=== PATIENT | female | born 1985 | race Caucasian/White ===

== ENCOUNTER → 2018-03-15 | Emergency (ER) | payer MEDICAID ==
[~2018-03-15] VITALS: Ht 175.3 cm; Wt 79.5 kg
[2018-03-15 18:27] VITALS: BP 124/82; Ht 175.3 cm; Wt 79.5 kg
== END | disposition home or self-care (01) ==
LOC: D.ER 18:19
DX: A64 Unspecified sexually transmitted disease (principal); F17.200 Nicotine dependence, unspecified, uncomplicated

== ENCOUNTER 2018-09-26 12:15 | Emergency (ER) | payer MEDICAID ==
[~2018-09-26] VITALS: Ht 175.3 cm; Wt 77.3 kg
[2018-09-26 12:23] VITALS: Ht 175.3 cm; Wt 77.3 kg
[2018-09-26] MEDS ORDERED: CLEOCIN HCL300 MG PO (14:27)
[2018-09-26 14:33] VITALS: BP 122/64
== END 2018-09-26 14:34 | disposition home or self-care (01) ==
LOC: D.ER 12:15
DX: L70.9 Acne, unspecified (principal)

== ENCOUNTER 2018-10-24 10:02 | Emergency (ER) | payer MEDICAID ==
[~2018-10-24 10:02] MED LIST: CLEOCIN HCL300 MG PO
[2018-10-24 10:15] VITALS: Ht 175.3 cm
[2018-10-24] MEDS ORDERED: LYRICA100 MG PO (10:16)
[2018-10-24] MEDS ORDERED: OXYCONTIN10 MG PO (10:16)
[2018-10-24] MEDS ORDERED: CYMBALTA30 MG PO (10:17)
[2018-10-24] MEDS ORDERED: ADDERALL 20 MG20 M1 PO (10:17)
[2018-10-24 10:35] LABS: APPEARANCE CLEAR (CLEAR); BACTERIA MANY /hpf (NONE SEEN); BILIRUBIN NEGATIVE (NEGATIVE); COLOR YELLOW (YELLOW); EPITHELIAL CELLS 0-5 /hpf (0-5); GLUCOSE NEGATIVE (NEGATIVE); KETONE NEGATIVE (NEGATIVE); MUCUS >1+ /lpf (NONE SEEN); NITRITE NEGATIVE (NEGATIVE); PROTEIN NEGATIVE (NEGATIVE); SPECIFIC GRAVITY 1.025 (1.005-1.020); UROBILINOGEN NORMAL (NORMAL)
[2018-10-24] MEDS ORDERED: VOLTAREN75 MG PO (11:05)
[2018-10-24] MEDS ORDERED: ROBAXIN500 MG PO (11:05)
[2018-10-24] MEDS ORDERED: MACROBID100 MG PO (11:05)
[2018-10-24 11:16] VITALS: BP 120/84
== END 2018-10-24 11:18 | disposition home or self-care (01) ==
LOC: D.ER 10:02
PROVIDERS: Family Medicine
DX: N39.0 Urinary tract infection, site not specified (principal); S16.1XXA Strain of muscle, fascia and tendon at neck level, initial encounter; X58.XXXA Exposure to other specified factors, initial encounter; Y93.89 Activity, other specified; Y92.89 Other specified places as the place of occurrence of the external cause; R10.2 Pelvic and perineal pain

== ENCOUNTER → 2018-11-24 12:42 | Outpatient (CLI) | payer MEDICAID ==
[~2018-11-24 12:42] MED LIST changes: +ADDERALL 20 MG20 M1 PO; +CYMBALTA30 MG PO; +LYRICA100 MG PO; +MACROBID100 MG PO; +OXYCONTIN10 MG PO; +ROBAXIN500 MG PO; +VOLTAREN75 MG PO
== END | disposition home or self-care (01) ==
LOC: D.US 12:42
PROVIDERS: ATTEND Internal Medicine Gastroenterology
DX: R10.11 Right upper quadrant pain (principal); R11.0 Nausea

== ENCOUNTER → 2018-12-30 08:29 | Outpatient (CLI) | payer MEDICAID | END | disposition home or self-care (01) | LOC: D.NM 12-24 09:00 | PROVIDERS: ATTEND Internal Medicine Gastroenterology | DX: R10.11 Right upper quadrant pain (principal) ==